=== PATIENT | male | born 1970 | race Caucasian/White ===

== ENCOUNTER 2019-07-26 03:45 | Emergency (ER) | payer SELFPAY ==
[2019-07-26] MEDS ORDERED: Adacel (T-DAP) 0.5 ML SYRINGE ONE (03:57)
[2019-07-26] MEDS ORDERED: Lidocaine 1% w/Epinephrine 1:100K 20 ML VIAL ONE (04:11)
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
== END 2019-07-26 05:35 | disposition home or self-care (01) ==
LOC: ERS 03:45
DX: S01.111A Laceration without foreign body of right eyelid and periocular area, initial encounter (principal); F10.129 Alcohol abuse with intoxication, unspecified; Z23 Encounter for immunization; W19.XXXA Unspecified fall, initial encounter
CPT/HCPCS: 12013; 70450; 72125; 90471; 90715; L0120